=== PATIENT | female | born 1985 | race American Indian/Alaskan Native ===

== ENCOUNTER → 2021-10-26 08:55 | Outpatient (CLI) | payer BC, SELFPAY ==
--- NOTE | ~2021-10-26 | XR_ITS ---
EXAMINATION: XR abdomen/kub 1V INDICATION: Constipation TECHNIQUE: Supine views of the abdomen were obtained on three radiographs. COMPARISON: None FINDINGS: A moderate volume of colonic stool is present. There are no dilated loops of bowel. The bow el gas pattern is normal. The visualized lung bases are clear. There is lumbar levocurvature. IMPRESSION: 1. Moderate volume of colonic stool. Reviewed, dictated and finalized at location B. 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
== END ==
PROVIDERS: PCP Internal Medicine; Visit Provider Internal Medicine
DX: K59.00 Constipation, unspecified (principal)
CPT/HCPCS: 74018

== ENCOUNTER → 2021-11-08 06:58 | Outpatient (CLI) | payer BC, SELFPAY ==
--- NOTE | ~2021-11-08 | XR_ITS ---
EXAMINATION: XR abdomen/kub 1V INDICATION: Constipation TECHNIQUE: Supine views of the abdomen were obtained on three radiographs. COMPARISON: 10/26/2021 FINDINGS: There is a moderate amount of enteric contrast material in the colon. Patient reportedly mon d barium study performed on 10/29. There are no dilated loops of bowel. There is a moderate volume of stool in the ascending colon. No free intraperitoneal gas is identified. The visualized lung bases ar e clear. IMPRESSION: 1. Moderate volume of retained enteric contrast in the colon suggestive of slow transit. Reviewed, dictated and finalized at location B.
== END ==
PROVIDERS: PCP Internal Medicine; Visit Provider Internal Medicine
DX: K59.09 Other constipation (principal)
CPT/HCPCS: 74018